=== PATIENT | female | born 1945 | race Caucasian/White ===

== ENCOUNTER → 2020-09-28 10:34 | Outpatient (CLI) | payer MEDICARE, BC, SELFPAY ==
--- NOTE | ~2020-09-28 | CT_ITS ---
EXAMINATION: CT abdomen pelvis wo con DATE: 09/28/2020 11:08 INDICATION: Low back pain, frequent micturition, mixed incontinence TECHNIQUE: Computed tomography (CT) of the abdomen and pelvis was performed without intravenous contr ast. Automated exposure control and iterative reconstruction technique were employed. Exam dose: 785 .16 mGy-cm total exam DLP. COMPARISON: None. FINDINGS: There is discoid atelectasis or scarring at the lung bases, including middle and both lower lobes. Heart size is mildly enlarged. Coronary artery calcification. No pericardial or pleural effusion. Calcified hepatic and splenic granulomas consistent with old granulomatous disease. No hepatic, splen ic, pancreatic, adrenal space-occupying mass lesion. Bilateral parapelvic renal cysts. No urinary tract calculus or hydroureteronephrosis. There is asymmetric mild diffuse thickening of the right urinary bladder wall compared to the left. Status post hysterectomy. Normal caliber of the abdominal aorta. No intraperitoneal or retroperitoneal or pelvic mass lesion or adenopathy or ascites. There are numerous diverticula of the sigmoid and descending colon as well as occasional transverse a nd ascending colon diverticula. There is no CT evidence of diverticulitis. Normal appendix. No bowel obstruction, bowel wall thickening, pneumatosis or intraperitoneal free air. Small fat-containing umbilical hernia. No suspicious osteolytic or osteoblastic lesions are noted. IMPRESSION: Cardiomegaly, coronary atherosclerosis Bilateral parapelvic renal cysts Nonspecific mild thickening of the right side of the urinary bladder wall; consider cystitis. Recomme nd correlation with urinalysis. Consider cystoscopic correlation if clinically appropriate. Diverticulosis of left and right colon; no CT evidence of diverticulitis Reviewed, dictated and finalized at [facility]. Reviewed, dictated and finalized at [facility]. EADER IMPRESSION: Cardiomegaly, coronary atherosclerosis Bilateral parapelvic renal cysts Nonspecific mild thickening of the right side of the urinary bladder wall; cons ider cystitis. Recommend correlation with urinalysis. Consider cystoscopic dennys elation if clinically appropriate. Diverticulosis of left and right colon; no CT evidence of diverticulitis
== END ==
PROVIDERS: PCP Pediatrics; Visit Provider Pediatrics
DX: R35.0 Frequency of micturition (principal); N39.46 Mixed incontinence; M54.5 Low back pain; I25.10 Atherosclerotic heart disease of native coronary artery without angina pectoris; N28.1 Cyst of kidney, acquired; K57.30 Diverticulosis of large intestine without perforation or abscess without bleeding
CPT/HCPCS: 74176

== ENCOUNTER 2023-11-15 01:21 | Day surgery (SDC) | payer MEDICARE, BC, SELFPAY ==
[2023-11-07 08:32] VITALS: BMI 30.2
--- NOTE | 2023-11-07 08:53 | PC.NURSE ---
Report to the Outpatient Waiting Room, entrance under the green pavilion located off [facility], at time ___0900____ on date __11/15/23 . Planned Procedure Time: ___1100 . Time changes happen often and if your time is changed the preop area will call you the afternoon before. - You and your visitor will be asked to self-screen and do not enter if you have any COVID symptoms. - A mask is optional within the hospital at this time. Patients may have clear liquids (water, carbonated beverages, clear teas, apple juice) until 3 hours prior to surgery with a maximum of 20 ounces. - No food from midnight until time of surgery - Infants may have breast milk until 4 hours before surgery, infant formula 6 hours prior to surgery. - Children will be allowed to drink immediately following surgery. If applicable, please bring a bottle or sippy cup to assist with drinking. Juice, water, soda, and popsicles are readily available. For infants on formula, please bring formula the day of surgery. Pacifiers are allowed. Take the following medications with a SIP of water the morning of surgery: NONE DO NOT STOP ANY OF YOUR OTHER PRESCRIPTION MEDICATIONS PRIOR TO SURGERY ?EXCEPT THE FOLLOWING Medications to discontinue per physician ___PER STANDING ORDERS PT MAY CONTINUE ASPIRIN Medications to discontinue per ANESTHESIA - _VITAMINS/SUPPLEMENTS 3 DAYS PRIOR TO SURGERY, Date to take last dose___11/11/23 Please no make-up, nail japanese, hairspray, perfume, deodorant, or body powder the day of surgery. No jewelry (including any body piercings) or valuables the day of surgery, leave them at home. Please take a shower or bath the night before, or the morning of, surgery with an antibacterial soap. Wear comfortable, loose fitting clothing. Children are encouraged to wear pajamas. - Jewelry must be removed prior to entering the operating room. Rings and piercings that are not removed may be cut off. - The hospital will not accept responsibility for valuables. - Please leave all valuables, including medications, at home the day of surgery. If you are going home after surgery, a licensed log truck driver must drive you home. - NO public transportation without another adult if you receive anesthesia. - We recommend that an adult stay with you for 24 hours following discharge. - We also recommend that you do not drive, make important decision, drink alcoholic beverages, or take any drugs that were not prescribed by your health care provider for at least 24 hours after your discharge time. For Pediatric surgeries, we recommend two adults accompany the child home. Follow any additional instructions given to you from your surgeon. If you or anyone in your household have experienced Covid symptoms in the past week, please notify your surgeon or the nurse liaison at the phone number below for possible testing. Telephone instructions given to _PATIENT_and asked if any additional questions and then verbalized understanding. Patient advised to call surgeon office or pre surgery nurse liaison [phone] if any additional questions.
--- NOTE | 2023-11-14 14:03 | WPDANESEPPF ---
Anes - Initial Pre Proc Eval Procedure: Operation Date: 11/15/23 11:00 Proposed Procedures p Left Ankle Removal Hardware - Abdoulaye Osman MD s Left Tarsal Tunnel Superficial Peroneal Release - Abdoulaye Osman MD Date/Time: 11/14/23 14:03 Surgeon: Abdoulaye Osman MD Pre Op Diagnosis: Lt Ankle Hardware, Tarsal Tunnel Patient Data Age: 77 Gender: F Height: 1.55 m Weight: 72.72 kg Allergies Allergy/AdvReac Type Severity Reaction Status Date / Time codeine Allergy Mild ELEVATED Verified 11/07/23 08:26 HEART RATE hydrochlorothiazide Allergy Unknown Unknown-UNABLE Verified 11/07/23 08:26 TO RECALL hydrocodone Allergy Unknown ELEVATED Verified 11/07/23 08:26 HEART RATE Contrast Media Allergy Intermediate N/V Uncoded 11/07/23 08:26 Home Medications Medication Instructions Recorded Confirmed Type ascorbate calcium (vitamin C) 500 500 mg PO BID 10/09/23 11/07/23 History mg tablet atorvastatin 10 mg tablet 10 mg PO QHS 10/09/23 11/07/23 History cholecalciferol (vitamin D3) 25 25 mcg PO DAILY 10/09/23 11/07/23 History mcg (1,000 unit) capsule estradiol 0.5 mg tablet 0.5 mg PO DAILY 10/09/23 11/07/23 History ferrous sulfate 325 mg (65 mg 325 mg PO .COMPLEX 10/09/23 11/07/23 History iron) tablet lisinopril 20 mg tablet 20 mg PO BID 10/09/23 11/07/23 History magnesium 250 mg tablet 250 mg PO BID 10/09/23 11/07/23 History omeprazole 20 mg capsule,delayed 20 mg PO EVERY OTHER DAY 10/09/23 11/07/23 History release ropinirole 1 mg tablet 1 mg PO BID 10/09/23 11/07/23 History turmeric root extract 500 mg 500 mg PO BID 10/09/23 11/07/23 History capsule aspirin 325 mg tablet 325 mg PO HS 11/07/23 11/07/23 History calcium 500 mg tablet 500 mg BID 11/07/23 11/07/23 History ondansetron 8 mg disintegrating 8 mg PO Q8H PRN nausea and 11/15/23 Rx tablet vomiting #10 tabs sennosides 8.6 mg-docusate sodium 1 tab-cap PO BID PRN constipation 11/15/23 Rx 50 mg tablet (Senna with Docusate #20 tabs Sodium) Patient hx anesthesia problems: post op nausea/vomiting Family hx anesthesia problems: none Results Review: All pre-operative results and documents have been reviewed as part of the pre-operative evaluation. [facility] Past Medical History Medical History Fracture of ankle, trimalleolar, closed GERD (gastroesophageal reflux disease) Hyperlipidemia Hypertension Painful orthopaedic hardware PONV (postoperative nausea and vomiting) Tarsal tunnel syndrome of left side TIA (transient ischemic attack) Surgical History Surgical History History of cholecystectomy History of open reduction and internal fixation (ORIF) procedure Family History Family History Unknown Hypertension Depression Carcinoma of colon Social History Social History Smoking packs per day: 1 Smoking cigarettes per day: 20.0 Years smoked: 50 Smoking pack-years: 50.00 Smoking status: Former smoker Tobacco type: cigarettes Second hand tobacco smoke exposure: No Smoking end date: 10/22/09 Alcohol intake: current Drinks per week: 4 Substance use: never Substance use type: does not use Living arrangements: with family Occupation/Education: retired Gender identity (if verbalized by the patient): Female Spiritual care concerns: No Anes - Eval Final PreProcedure Day of Procedure 11/14/23 14:03 Patient weight: obese Heart: regular rate and rhythm Lungs: clear to auscultation Airway: Mallampati scale class II Neurological: alert and oriented Last oral intake: >/= 8 hours ASA classification: III Emergent: no Anesthetic plan: proceed Anesthesia type and monitoring: general LMA and standard monitoring Results Review: All pre-operative results and documents
--- NOTE | 2023-11-14 15:59 | PM.IMHP ---
H&P: HPI History of Present Illness Date/Time: 11/14/23 15:59 Chief Complaint: left ankle pain Narrative: 77-year-old who sustained a left ankle fracture. Treated with surgery. Since the surgery she has had pain, numbness and tingling. Fractures are now healed. Are her source of pain is related to the site of the internal fixation utilized. Unrelieved with pain medication, therapy and bracing. [facility] Past Medical History Medical History Fracture of ankle, trimalleolar, closed GERD (gastroesophageal reflux disease) Hyperlipidemia Hypertension Painful orthopaedic hardware PONV (postoperative nausea and vomiting) Tarsal tunnel syndrome of left side TIA (transient ischemic attack) Surgical History Surgical History History of cholecystectomy History of open reduction and internal fixation (ORIF) procedure Family History Family History Unknown Hypertension Depression Carcinoma of colon Social History Social History Smoking packs per day: 1 Smoking cigarettes per day: 20.0 Years smoked: 50 Smoking pack-years: 50.00 Smoking status: Former smoker Tobacco type: cigarettes Second hand tobacco smoke exposure: No Smoking end date: 10/22/09 Alcohol intake: current Drinks per week: 4 Substance use: never Substance use type: does not use Living arrangements: with family Occupation/Education: retired Gender identity (if verbalized by the patient): Female Spiritual care concerns: No Meds Home Medications and Allergies Home Medications Medication Instructions Recorded Confirmed Type ascorbate calcium (vitamin C) 500 500 mg PO BID 10/09/23 11/07/23 History mg tablet atorvastatin 10 mg tablet 10 mg PO QHS 10/09/23 11/07/23 History cholecalciferol (vitamin D3) 25 25 mcg PO DAILY 10/09/23 11/07/23 History mcg (1,000 unit) capsule estradiol 0.5 mg tablet 0.5 mg PO DAILY 10/09/23 11/07/23 History ferrous sulfate 325 mg (65 mg 325 mg PO .COMPLEX 10/09/23 11/07/23 History iron) tablet lisinopril 20 mg tablet 20 mg PO BID 10/09/23 11/07/23 History magnesium 250 mg tablet 250 mg PO BID 10/09/23 11/07/23 History omeprazole 20 mg capsule,delayed 20 mg PO EVERY OTHER DAY 10/09/23 11/07/23 History release ropinirole 1 mg tablet 1 mg PO BID 10/09/23 11/07/23 History turmeric root extract 500 mg 500 mg PO BID 10/09/23 11/07/23 History capsule aspirin 325 mg tablet 325 mg PO HS 11/07/23 11/07/23 History calcium 500 mg tablet 500 mg BID 11/07/23 11/07/23 History Allergies Allergy/AdvReac Type Severity Reaction Status Date / Time codeine Allergy Mild ELEVATED Verified 11/07/23 08:26 HEART RATE hydrochlorothiazide Allergy Unknown Unknown-UNABLE Verified 11/07/23 08:26 TO RECALL hydrocodone Allergy Unknown ELEVATED Verified 11/07/23 08:26 HEART RATE Contrast Media Allergy Intermediate N/V Uncoded 11/07/23 08:26 Exam Const: General: No confusion Orientation/consciousness: No confusion HENMT: Head: normal to inspection, normocephalic and atraumatic Eyes: Conjunctivae: conjunctivae normal Sclera: sclerae normal Neck: Neck: supple and nontender Chest: Chest palpation & inspection: normal inspection of the chest Resp: Effort & Inspection: normal respiratory effort and no audible wheezes Cardio: Rate: regular rate Rhythm: regular rhythm : General: Yes deferred Skin: General skin exam: no rashes or lesions noted Neuro: General: No confusion Extrem: General: capillary refill normal Right upper extremity: normal to inspection Left upper extremity: normal to inspection Right lower extremity: normal to inspection, hip/thigh Details: normal to inspection, ankle Details: no tenderness and no swelling and foot Details: normal capill
[2023-11-15] VITALS (9 sets, daily range): BP systolic 116–159; BP diastolic 66–79; PULSE 62–89; RESP 12–18; TEMP 36.1–36.4; O2SAT 93–98
--- NOTE | ~2023-11-15 | XR_ITS ---
EXAMINATION: XR surgery orthopedic DATE: 11/15/2023 11:58 INDICATION: Orthopedic instrumentation removal at the left ankle TECHNIQUE: 3 fluoroscopic images of the left ankle were obtained during procedure performed by Dr. Amor saldana. Radiologist was not present for the imaging or procedure. The amount of fluoroscopy time used during this procedure was 0.1 minutes. COMPARISON: 10/09/2023 FINDINGS: Interval removal of the internal fixation instrumentation at the left ankle with residual lucent scre w tracks along the distal fibular and tibia. No retained foreign bodies identified. Bone alignment is normal. Prior fractures have healed in essentially anatomic alignment with only minimal irregularity to the articular cortex along the posterior tibial plafond. No acute fracture. 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 Soft tissues are unremarkable. IMPRESSION: 1. No retained foreign bodies or acute osseous abnormality post removal of internal fixation instrume ntation at the left ankle. See procedure note for further detail. Reviewed, dictated and finalized at location [facility]. ATRIC SURGEON IMPRESSION: 1. No retained foreign bodies or acute osseous abnormality post removal of inte rnal fixation instrumentation at the left ankle. See procedure note for further detail.
--- NOTE | 2023-11-15 06:57 | WPDHPUPDATE1 ---
History and Physical Update Update Date/Time: 11/15/23 06:57 History and Physical has been reviewed, including an updated exam of the patient. There are NO changes in the patient's condition. Risks, benefits, and alternatives have been discussed and questions answered. Patient agrees to proceed with procedure.
[2023-11-15] MEDS: ACETAMINOPHEN 500 MG TABLET 1000 MG PO (09:45)
[2023-11-15] MEDS: KETOROLAC 15 MG/ML VIAL (*BKC) IV PUSH (09:45)
[2023-11-15] MEDS: LACTATED RINGERS 1,000 ML 30 ML IV CONT ×2 (09:45→12:50)
[2023-11-15] MEDS: ceFAZolin 2 GM/D5W 50 ML 2 GM/50 ML BAG IVPB (11:04)
--- NOTE | 2023-11-15 11:16 | WPDANESPNB ---
Anes - Peripheral Nerve Block Date/Time: 11/15/23 11:16 I have discussed with the patient/family/POA the placement of a peripheral nerve block for post-operative pain management, including associated risks, benefits, complications, and side effects. Alternative methods of post-operative analgesia were detailed. Questions were solicited and answers provided to the satisfaction of the patient/family/POA. Time-Out: A pre-procedural Time-Out was completed immediately before starting the procedure and confirmed: Patient Identification, Site, Procedure, Patient Position and the Availability of Requisite Equipment. Clinical Indications: Acute post-operative pain management requested by the operative surgeon. Nerve Block Insertion Note Anes-nerve block: posterior fossa sciatic left Patient position: supine Skin prep: chlorhexidine Needle: 22 gauge, stimulating, insulated echogenic needle. Needle length: 80 mm Technique: ultrasound Injectate: bupivacaine 0.5% with epi 5 mcg/ml (25 ml (no epi)) Observations: tolerated well Complications: none Procedure start time:: 1104 Procedure end time:: 110
[2023-11-15] MEDS: BUPIVACAINE/EPINEPHRINE 0.5% 50 ML VIAL 30 ML INFILTRATE (11:41)
--- NOTE | 2023-11-15 12:54 | W.PM.PROC2 ---
Procedure Note - Detailed Date of Procedure 11/15/23 Pre-op Diagnosis Lt Ankle Hardware, Tarsal Tunnel Post-op Diagnosis Same Procedure Performed Left ankle tarsal tunnel release, removal of hardware, superficial peroneal release Surgeon Abdoulaye Osman MD [employer] 1st registered dental assistant rda Anesthesia General Indications 77-year-old woman who had a trimalleolar fracture of the ankle treated with open reduction internal fixation. Pain from the hardware also visible and prominent under the skin. Also with findings consistent with tarsal tunnel syndrome and compression of the superficial branch of the peroneal. Presents for operative treatment. Findings Compression from the fascia tarsal tunnel and superficial peroneal nerve. Fractures healed. Description of Procedure Informed consent given by the patient and operative extremity marked in preoperative holding area. Patient received intravenous antibiotics. Taken to the operating room and underwent general anesthesia by anesthesia team. Positioned supine on operating room table. Time-out performed confirming patient, site of surgery, planned. Left lower extremity prepped and draped in usual sterile surgical fashion using ChloraPrep skin solution. Foot ankle exsanguinated and thigh tourniquet inflated to 250 mmHg. Local anesthetic with 0.5% Marcaine and epinephrine at the incision site. Fifteen blade knife used to make oblique incision over the medial aspect left ankle. Previous incision was utilized. Hemostasis controlled with electrocautery. Dissection carried down to the fascia Which was noted to be tight in compressive the underlying soft tissue. incised in line with skin incision and retractors placed. Careful technique utilized with [place] elevator deep to the transverse tarsal ligament and ligament divided in line with skin incision. Dissection from proximal to distal with protection of the neurovascular bundle. Tightness of the retinaculum noted. Medial branch plantar nerve identified and released under direct visualization into the tarsal canal. Lateral branch identified and released under the abductors musculature. No other areas of compression identified. Wound irrigated and the subcutaneous tissue repaired loosely with 3-0 Monocryl interrupted suture. The fascia was left open to prevent further compression. Dissection down to the medial malleolus with 15 blade knife and the 2 fracture screws were identified and removed with a screwdriver. Screw holes curetted and irrigated. Subcutaneous tissue closed with 3-0 Monocryl interrupted suture and skin repaired with 4-0 nylon running suture. Longitudinal incision made Lateral aspect of the ankle over the distal fibula with the previous incision was. Bleeding controlled with electrocautery. Retractors placed. Fascia incised in line with skin incision and the plate and screws over the distal fibula identified. The screws removed including the syndesmosis screw and the anterior lag screw. The plate was then removed. Bone was smoothed with a rongeur and irrigated. Fascia closed with 3-0 Monocryl suture. Approximately midportion of the wound the superficial peroneal nerve branches identified and this was dissected free proximally from the envelop in fascia. Nerve followed proximally into the musculature And released. Nerve was then followed distally in released from the surrounding tissue. Wound thoroughly irrigated. Subcutaneous tissue repaired with 2 O Vicryl and 3 Monocryl interrupted suture. Skin repaired with 4 nylon running suture. Sterile dressing placed. Bulky dressing and splint applied. Patient woken from anesthesia, extubated, taken to recovery in stable condition. All sponge, needle, instrument counts correct at end of case. Estimated Blood Loss 20 Tourniquet Time Total Tourniquet Time: 45 Drains No Packing No Pathology None sent Complications None Condition Stable Disposition PACU
[2023-11-15] MEDS: oxyCODONE HCL (*CRX) 5 MG TAB IR PO (14:15)
== END 2023-11-15 15:09 | disposition home or self-care (01) ==
PROVIDERS: PCP Pediatrics; Visit Provider Orthopaedic Surgery
PROC: (CPT 28035; principal; 2023-11-15 11:00)
PROC: (CPT 28035; 2023-11-15 11:00)
DX: T84.84XA Pain due to internal orthopedic prosthetic devices, implants and grafts, initial encounter (principal); G57.52 Tarsal tunnel syndrome, left lower limb; K21.9 Gastro-esophageal reflux disease without esophagitis; E78.5 Hyperlipidemia, unspecified; I10 Essential (primary) hypertension; E66.9 Obesity, unspecified; Y83.8 Other surgical procedures as the cause of abnormal reaction of the patient, or of later complication, without mention of misadventure at the time of the procedure; G89.18 Other acute postprocedural pain; Z68.30 Body mass index [BMI] 30.0-30.9, adult; Z79.82 Long term (current) use of aspirin; Z98.890 Other specified postprocedural states; Z90.49 Acquired absence of other specified parts of digestive tract; Z87.891 Personal history of nicotine dependence; Z86.73 Personal history of transient ischemic attack (TIA), and cerebral infarction without residual deficits; Z87.81 Personal history of (healed) traumatic fracture; Z80.0 Family history of malignant neoplasm of digestive organs
CPT/HCPCS: 64445; 28035; 20680; 99199; A9270; J0690; J1040; J1100; J1170; J1200; J1596; J1885; J2371; J2405; J2704; J3010; J7120

== ENCOUNTER 2024-08-04 09:59 | Outpatient (CLI) | payer MEDICARE, BC, SELFPAY | END 2024-08-04 10:00 | disposition home or self-care (01) | LOC: ANHAUDASC 09:59 | PROVIDERS: PCP Pediatrics; Visit Provider Pediatrics | DX: Z86.73 Personal history of transient ischemic attack (TIA), and cerebral infarction without residual deficits (principal); H90.3 Sensorineural hearing loss, bilateral | CPT/HCPCS: 92557; 92567 ==

== ENCOUNTER 2024-09-23 11:30 | Outpatient (RCR) | payer MEDICARE, BC, SELFPAY | END 2024-10-16 07:25 | disposition other institution (70) | LOC: ANHAUDASC 11:30 | PROVIDERS: PCP Pediatrics; Visit Provider Pediatrics | DX: Z46.1 Encounter for fitting and adjustment of hearing aid (principal) | CPT/HCPCS: 99199; V5261 ==